=== PATIENT | female | born 1950 | race Caucasian/White ===

== ENCOUNTER 2019-11-09 17:17 | Observation (INO) | payer BC, OTHER ==
[2019-11-09 18:00] LABS: #Eosinphils 0.8 thou/uL (0.0-0.7); #Lymphocytes 1.3 thou/uL (1.20-3.40); #Monocytes 0.4 thou/uL (0.11-0.59); #Neutrophils 4.4 thou/uL (1.40-6.50); %Basophils 0.3 % (0.0-1.0); %Eosinophils 11.3 % (0.0-10.0); %Monocytes 6.1 % (0.0-10.0); %Neutrophils 63.2 % (42.0-75.0); Hemoglobin 12.7 g/dL (12.0-16.0); Mean Corpuscular Hemoglobin 32.7 pg (27.0-31.0); Mean Corpuscular Volume 90.7 fL (78.0-98.0); Platelet Count 195 thou/uL (130-400); RBC Distribution Width 12.7 % (11.5-14.5); White Blood Cell (WBC) Count 6.9 thou/uL (4.8-10.8)
[2019-11-09 18:19] LABS: ALT (SGPT) 22 U/L (8-55); AST (SGOT) 31 U/L (5-34); Albumin 4.1 g/dL (3.4-4.8); Alkaline Phosphatase 64 U/L (40-110); Anion Gap 15 mmol/L (10-20); BUN (Urea Nitrogen) 27 mg/dL (9.8-20.1); Bilirubin, Total 0.4 mg/dL (0.2-1.2); CK (CPK) 55 U/L (29-168); Calc. Creatinine Clearance 0 mL/min (70-130); Carbon Dioxide 20 mmol/L (23-31); Chloride 110 mmol/L (98-107); Estimated GFR-MDRD 29; Globulin 2.9 g/dL (2.4-3.5); Glucose 97 mg/dL (80-115); Lipase 37 U/L (8-78); Potassium 4.5 mmol/L (3.5-5.1); Sodium 140 mmol/L (136-145)
--- NOTE | 2019-11-09 18:35 | RAD ---
EXAM: CHEST ONE VIEW HISTORY: Chest pain dizziness, nausea, shortness of breath. COMPARISON: 06/25/2016 FINDINGS: Cardiac silhouette is magnified by projection but stable in size. The pulmonary vasculature is within normal limits. There is mild atelectasis present at the right lung base. Lungs are otherwise clear. No other interval change when compared to prior study. IMPRESSION: Findings suggestive of mild atelectasis right lung base. There is otherwise no acute cardiopulmonary process
--- NOTE | 2019-11-09 19:21 | PDOC.FPRHP ---
- History of Present Illness Chief Complaint: Chest Pain History of Present Illness: Pt is a 69 yo F with pmh of CAD, HTN, Migraines, Anxiety, and Depression who presents with chest pain. She says 5 minutes till 3 she had sharp stabbing pain , 15/10, that went through from the front to the back and lasted till 1509. She said she was sitting on her couch on her computer. She tried to take an peter seltzer before EMS got there. She said she had similar pain last Monday in the middle of the night while she was lying on her left side, that eventually resolved on its own. EMS got there about 20 minutes after and she said if felt like elastic was around her. EMS gave her 4 ASA and she said the pain resolved 5 minutes later. She was sweating, SOB, tingling in hands and feet, and nausea. She said her shoulders hurt across the top back. She had previously seen Dr. Donald zambrano in 2016. He did a heart cath. ED Course: Labs were obtained in the ED. Trop was 0.015. EKG showed some ST depression in the lateral leads. - Allergies/Adverse Reactions Allergies Allergy/AdvReac Type Severity Reaction Status Date / Time No Known Allergies Allergy Verified 06/25/16 20:29 - Home Medications Medication Instructions Recorded Confirmed Type Aspirin 325 mg PO HS 06/25/16 11/09/19 History Sertraline HCl 200 mg PO HS 06/25/16 11/09/19 History busPIRone HCl [Buspirone HCl] 10 mg PO HS 06/25/16 11/09/19 History Lisinopril 1 tab PO HS 11/09/19 11/09/19 History - History PMHx: CAD, HTN, Migraines, Anxiety, Depression PSHx: Heart Cath (2016), x2 (09/1978, 08/1979), Ex-Lap (02/1979), Partial Hysterectomy (1981), Appendectomy (1981), Cholecystectomy (2015) FHx: Dad- CABG, Sister- HTN Social: No alcohol, tobacco, or illicit drug use. - Review of Systems General: denies: fever/chills Eyes: denies: vision changes Respiratory: reports: shortness of breath. denies: cough Cardiovascular: reports: chest pain Gastrointestinal: reports: nausea, diarrhea. denies: constipation, abdominal pain Genitourinary: denies: dysuria Skin: denies: rashes, lesions Musculoskeletal: reports: pain (upper back) Neurological: reports: other (tingling of hands and feet) Psychological: reports: anxiety, depression - Vital signs BP: 150/85 HR: 65 RR: 17 Tmax: 98.6 Pox: 100% on RA Wt: 90 kg - Physical Exam Constitutional: NAD, awake, alert and oriented HEENT: normocephalic and atraumatic, PERRLA, EOMI, normal nasal mucosa, MMM, oropharynx clear Neck: supple, trachea midline Heart: RRR, normal S1/S2, no murmurs/rubs/gallops, pulses present Lungs: CTAB, no respiratory distress, good air movement, no rales/rhonchi, no wheezing, no retractions Abdomen: soft, non-tender, bowel sounds present Musculoskeletal: normal structure, normal tone Neurological: no focal deficit, CN II-XII intact Skin: no rash/lesions, good turgor Heme/Lymphatic: no unusual bruising or bleeding Psychiatric: normal mood and affect FMR H&P: Results - Labs Result Diagrams: 11/09/19 17:50 11/10/19 03:27 Lab results: WBC 6.9 thou/uL (4.8-10.8) 11/09/19 17:50 Hgb 12.7 g/dL (12.0-16.0) 11/09/19 17:50 Hct 35.4 % (36.0-47.0) L 11/09/19 17:50 MCV 90.7 fL (78.0-98.0) 11/09/19 17:50 Plt Count 195 thou/uL (130-400) 11/09/19 17:50 Neutrophils % 63.2 % (42.0-75.0) 11/09/19 17:50 Sodium 140 mmol/L (136-145) 11/09/19 17:50 Potassium 4.5 mmol/L (3.5-5.1) 11/09/19 17:50 Chloride 110 mmol/L (98-107) H 11/09/19 17:50 Carbon Dioxide 20 mmol/L (23-31) L 11/09/19 17:50 BUN 27 mg/dL (9.8-20.1) H 11/09/19 17:50 Creatinine 1.76 mg/dL (0.6-1.1) H 11/09/19 17:50 Glucose 97 mg/dL (80-115) 11/09/19 17:50 Calcium 9.0 mg/dL (7.8-10.44) 11/09/19 17:50 Total Bilirubin 0.4 mg/dL (0.2-1.2) 11/09/19 17:50 AST 31 U/L (5-34) 11/09/19 17:50 ALT 22 U/L (8-55) 11/09/19 17:50 Alkaline Phosphatase 64 U/L (40-110) 11/09/19 17:50 Creatine Kinase 55 U/L (29-168) 11/09/19 17:50 Serum Total Protein 7.0 g/dL (6.0-8.3) 11/09/19 17:50 Albumin 4.1 g/dL (3.4-4.8) 11/09/19 17:50 Lipase 37 U/L (8-78) 11/09/19 17:50 - EKG Interpretation EKG: Anterolateral ST depression - Radiology Interpretation Chest x-ray Status: image reviewed by me, report reviewed by me (mild atelectasis of right lower lung base) FMR H&P: A/P - Problem List (1) Chest pain Current Visit: No Status: Acute Code(s): R07.9 - CHEST PAIN, UNSPECIFIED (2) Hypertension Current Visit: No Status: Chronic Code(s): I10 - ESSENTIAL (PRIMARY) HYPERTENSION (3) DANA (acute kidney injury) Current Visit: Yes Status: Acute Code(s): N17.9 - ACUTE KIDNEY FAILURE, UNSPECIFIED (4) Anxiety and depression Current Visit: No Status: Chronic Code(s): F41.9 - ANXIETY DISORDER, UNSPECIFIED; F32.9 - MAJOR DEPRESSIVE DISORDER, SINGLE EPISODE, UNSPECIFIED - Plan Pt is a 69 yo F with pmh of CAD, HTN, Migraines, Anxiety, and Depression who presents with chest pain. 1. Unstable Angina Trop: 0.015 * Hx of HTN * Stated pain was at rest, relieved by aspirin, sharp stabbing midsternal pain with radiation to the back * Heart Score: 6, risk factors: HTN, CAD, obesity * Father had a CABG * EKG: anterolateral depression * Admission in 2017 shows 20% stenosis in the LAD * Dr. Arriaga saw her during the admission, but she followed up with Dr. Bennett * Will * trend trops * consult Cardiology in the morning to determine if she needs a stress vs. cath * admit to telemetry * Check lipid Panel, TSH, Mag, Phos * Continue home medication: ASA 2. HTN BP: 150/85 * Continue home medication: Lisinopril 3. CKD vs. DANA Cre: 1.76 * In 2017 previously 1.13-1.3 * Will monitor with CMP 4. Anxiety & Depression Continue home medications: Sertraline & Buspirone Code Status: Full Diet: HHLSo > NPO @ midnight IVF: SL DVT PPx: Lovenox 30, CrCl: 20 GI PPx: Tums prn PCP: CC Dispo: Tele obs, LOS < 48H. Will work up for chest pain. FMR H&P: Upper Level - Plan Date/Time: 11/09/19 836 I, Tony Yates, have evaluated this patient and agree with findings/plan as outlined by administrative intern resident. Pertinent changes/additions are listed here. Addendum - Attending - Attending Attestation Date/Time: 11/09/19 3557 I personally evaluated the patient and discussed the management with Dr. Yates I agree with the History, Examination, Assessment and Plan documented above with any addition or exceptions noted below. 69 yo HTN nonsmoker brought in with chest pain at rest. Patient describes tight crushing severe left sided pain with radiation to back and shoulders associated with dyspnea and diaphoresis. Patient With relief in ambulance with ASA. Patient had similiar episode at rest several days ago. EKG with ST changes ant lateral leads initial troponin negative Lab with CKD creatinine 1.7. Patient no ongoing CP. PMHX HTN Depression Anxiety Migraine DOMINGUEZ Hepatitis C per records Obesity FMHX notable early onset HD father RX buspar zoloft zestril Nonsmoker Surgery C/S x 2 Hysterectomy/appendectomy Cholecystectomy 07/2016 Dr Dubois Heart Cath Normal appr 2006 abn Stress 06/2016 with f/u LHC with EF 55% and 20% left main nonobstructive lesion ? local prox verse distal Left main
[2019-11-09] MEDS ORDERED: Calcium Carbonate 500 MG ChewTAB PO PRN (19:22)
[2019-11-09] MEDS ORDERED: Senokot S 8.6-50 MG TAB PO PRN (19:22)
[2019-11-09] MEDS ORDERED: Ondansetron ODT 4 MG TAB PO PRN (19:22)
[2019-11-09] MEDS ORDERED: Acetaminophen 325 MG TAB PO PRN (19:22)
[2019-11-09] MEDS ORDERED: Nitroglycerin 0.4 MG TAB (25 Tab Bottle) PO PRN (19:24)
[2019-11-09 19:44] LABS: Cardiac Risk 4.3 (Less than 4.5)
[2019-11-09 21:30] LABS: Troponin I 0.148 ng/mL (< 0.028)
[2019-11-09 21:44] VITALS: BMI 45.1
[2019-11-09] MEDS: busPIRone HCl 10 MG TAB PO SCH (21:55)
[2019-11-09] MEDS: Lisinopril 5 MG TAB PO SCH (21:55)
[2019-11-09] MEDS: Aspirin 81 mg Enteric Coated Tablet PO SCH (21:55)
[2019-11-10 00:48] LABS: Troponin I Less than 0.010 ng/mL (< 0.028)
[2019-11-10 04:00] LABS: Phosphorus 3.6 mg/dL (2.3-4.7)
[2019-11-10 04:03] LABS: Anion Gap 11 mmol/L (10-20); BUN (Urea Nitrogen) 25 mg/dL (9.8-20.1); Calc. Creatinine Clearance 76 mL/min (70-130); Calcium 8.9 mg/dL (7.8-10.44); Carbon Dioxide 22 mmol/L (23-31); Chloride 109 mmol/L (98-107); Estimated GFR-MDRD 40; Glucose 95 mg/dL (80-115); Magnesium 2.1 mg/dL (1.6-2.6); Potassium 4.1 mmol/L (3.5-5.1); Sodium 138 mmol/L (136-145)
--- NOTE | 2019-11-10 05:40 | PDOC.FM ---
- Subjective Subjective: Patient doing well. Denies acute concerns. Denies CP, SOB, NVD since admission. - Objective MAR Reviewed: Yes Vital Signs & Weight: Vital Signs (12 hours) Temp Pulse Resp BP Pulse Ox 11/10/19 04:00 98.3 F 60 16 98/54 L 97 11/10/19 00:22 100 11/09/19 21:55 64 11/09/19 20:15 98.1 F 64 18 158/74 H 100 Weight Weight 119.386 kg Result Diagrams: 11/09/19 17:50 11/10/19 16:42 Dx/Plan - Plan Plan: Pt is a 69 yo F with pmh of CAD, HTN, Migraines, Anxiety, and Depression who presented with chest pain. 1. Unstable Angina * Hx of HTN * Admission in 2016 shows 20% stenosis in the LAD * Dr. Arriaga saw her during the admission, but she followed up with Dr. Bennett * Will * consult Cardiology * Continue home medication: ASA * Start Atorvastatin 20 based on ASCVD of 11% 2. HTN * Continue home medication: Lisinopril 3. CKD vs. DANA Returned to baseline per chart review (1.3) 4. Anxiety & Depression Continue home medications: Sertraline & Buspirone Code Status: Full Diet: NPO for possible cath IVF: SL DVT PPx: Lovenox 30, CrCl: 20 GI PPx: Tums prn PCP: CC Dispo: Tele obs, LOS < 48H. Will work up for chest pain. Addendum - Attending - Attending Attestation Date/Time: 11/10/19 7314 I personally evaluated the patient and discussed the management with Dr. Stewart I agree with the History, Examination, Assessment and Plan documented above with any addition or exceptions noted below.
[2019-11-10] MEDS: Enoxaparin Sodium 30 MG/0.3 ML SYRINGE SC SCH (08:25)
[2019-11-10] MEDS ORDERED: Aspirin 325 mg Enteric Coated Tablet PO SCH (09:00)
[2019-11-10] MEDS ORDERED: Iopamidol-370 76% 500 ML 1 ML ONE (09:35)
--- NOTE | 2019-11-10 12:56 | CON ---
DATE OF CONSULTATION: HISTORY OF PRESENT ILLNESS: The patient is a 69-year-old woman, who presents with recurrent chest discomfort. The patient was seen in 2017 with chest pain. She underwent a cardiac evaluation including a stress test, which revealed her to have no evidence of ischemia. There was marked ECG changes, so the patient subsequently underwent a cardiac catheterization. She was found to have mild coronary artery disease. There was a 20% lesion in the proximal LAD, the left circumflex , and right coronary free of significant disease. The patient was found to have gallstones and subsequently underwent a cholecystectomy. The patient has been free of chest discomfort until 10 days ago. The patient reports having severe midsternal chest discomfort that radiated to her back. The discomfort was associated with dyspnea. It lasted for approximately 10 minutes. The patient had another episode the day prior to admission, where she felt the same midsternal chest discomfort. This time it lasted approximately 15 minutes. It again radiated into her back. The patient came for further evaluation. The patient denies having any present chest discomfort. PAST MEDICAL HISTORY: 1. Coronary artery disease. 2. Hypertension. 3. Dyslipidemia. 4. Depression. 5. Hepatitis C. PAST SURGICAL HISTORY: Cholecystectomy, , and hysterectomy. SOCIAL HISTORY: Nonsmoker. FAMILY HISTORY: Strong family history of coronary artery disease. ALLERGIES: SHE HAS NO KNOWN DRUG ALLERGIES. MEDICATIONS: 1. Aspirin 325 daily. 2. Sertraline 200 daily. 3. BuSpar 10 daily. 4. Lisinopril 5 mg daily. FAMILY HISTORY: Positive family history of heart disease. Father had coronary artery bypass graft surgery. REVIEW OF SYSTEMS: Ten-point system otherwise unremarkable. PHYSICAL EXAMINATION: GENERAL: Obese woman, in no acute distress. VITAL SIGNS: Blood pressure 107/61. NECK: No jugular venous distention. LUNGS: Clear to auscultation. HEART: Regular rate and rhythm. Normal S1 and S2. ABDOMEN: Distended. EXTREMITIES: Showed no edema. VASCULAR: Radial pulses are 2+. LABORATORY DATA: Sodium 138, potassium 4.1, chloride 109, bicarbonate 22, BUN 25, and creatinine 1.3. Troponin less than 0.01. Her white blood cell count is 6.9 , hemoglobin 12.7, hematocrit 35.4, and platelets are 195. EKG normal sinus rhythm with an ST-T wave abnormality suggestive of ischemia. IMPRESSION: 1. Chest pain, possibly due to ischemic heart disease. 2. History of mild coronary artery disease. 3. Hypertension. 4. Dyslipidemia. 5. Morbid obesity. 6. Depression. This patient presents with chest discomfort. I will obtain a D-dimer to make sure, she is not in a risk of having had a pulmonary embolus. We will also recommend repeat stress testing to see if there is any evidence of significant ischemia. We will follow this patient with you through her hospitalization. Job ID: [id number] MTDSebastian
--- NOTE | 2019-11-10 16:20 | CT ---
CT PULMONARY ANGIOGRAM WITH IV CONTRAST AND 3D MIP RECONSTRUCTIONS: Date: 11-10-2019 Provided Clinical History: Elevated d-dimer and chest pain. FINDINGS: No comparison. Vascular calcification including coronary calcium is demonstrated. There is no evidence for central o r segmental pulmonary embolus. The lungs are free of significant opacity. The airways are patent in a ppearance and is of normal caliber. There is no evidence for thoracic lymph node enlargement. The vis ualized portions of the upper abdomen appear unremarkable. The osseous structures demonstrate no conc erning osteoblastic or osteolytic lesions. IMPRESSION: 1. No evidence for central or segmental pulmonary embolus. 2. Vascular calcification including coronary calcium. POS: TATE
[2019-11-10 17:12] LABS: Anion Gap 11 mmol/L (10-20); BUN (Urea Nitrogen) 21 mg/dL (9.8-20.1); Calc. Creatinine Clearance 81 mL/min (70-130); Calcium 9.1 mg/dL (7.8-10.44); Carbon Dioxide 23 mmol/L (23-31); Chloride 108 mmol/L (98-107); Estimated GFR-MDRD 43; Glucose 114 mg/dL (80-115); Sodium 138 mmol/L (136-145)
--- NOTE | 2019-11-10 21:08 | PDOC.BPN ---
- Brief Progress Note Pt developed 10/10 chest pain while at rest around 2024. Episode lasted approximately 14 minutes and symptoms were improved with one dose PRN nitro. Describes sharp pain that radiates to the back and bilateral shoulders. Stat EKG performed, appears to be unchanged from EKG on admission. Stable vitals, blood pressure 131/90 during episode. Assessed pt at bedside, was no longer having chest pain.
[2019-11-10 21:56] LABS: Troponin I 0.016 ng/mL (< 0.028)
[2019-11-10] MEDS: Aspirin 81 mg Enteric Coated Tablet PO SCH (22:12)
[2019-11-10] MEDS: busPIRone HCl 10 MG TAB PO SCH (22:13)
[2019-11-10] MEDS: Atorvastatin Calcium 40 MG TAB PO SCH (22:13)
[2019-11-10] MEDS: Lisinopril 5 MG TAB PO SCH (22:13)
[2019-11-11 05:01] LABS: Anion Gap 13 mmol/L (10-20); BUN (Urea Nitrogen) 22 mg/dL (9.8-20.1); Calc. Creatinine Clearance 80 mL/min (70-130); Calcium 9.3 mg/dL (7.8-10.44); Carbon Dioxide 20 mmol/L (23-31); Chloride 109 mmol/L (98-107); Estimated GFR-MDRD 42; Glucose 95 mg/dL (80-115); Sodium 138 mmol/L (136-145)
--- NOTE | 2019-11-11 07:30 | PDOC.FM ---
- Subjective Subjective: Pt has no complaints on the visit this morning. She states that last night she had an episode of 10/10 CP that resolved with nitro. She is slightly anxious as she is waiting for her stress test this morning. - Objective Vital Signs & Weight: Vital Signs (12 hours) Temp Pulse Resp BP BP Pulse Ox 11/11/19 05:37 97.7 F 65 12 93/54 L 98 11/10/19 22:13 67 108/75 11/10/19 19:32 98.6 F 64 18 119/69 96 Weight Weight 119.386 kg I&O: 11/10/19 11/11/19 11/12/19 06:59 06:59 06:59 Intake Total 240 830 Output Total 950 Balance -710 830 Result Diagrams: 11/09/19 17:50 11/11/19 04:07 Phys Exam - Physical Examination Constitutional: NAD HEENT: moist MMs Neck: supple, full ROM Respiratory: no wheezing, no rales, clear to auscultation bilateral Cardiovascular: RRR, no significant murmur Gastrointestinal: soft, non-tender Musculoskeletal: no edema, pulses present Neurological: non-focal, moves all 4 limbs Psychiatric: normal affect Skin: no rash, cap refill <2 seconds Dx/Plan - Plan Plan: 1. Atypical CP -Hx of HTN, heart cath 2016 shows 20% stenosis in the LAD -cardiology consulted- Dr Sanders started atorvastatin 40mg -Continue home medication: ASA -ASCVD of 11% -stress test today -nitroglycerin prn 2. HTN -Continue home medication: Lisinopril 3. CKD 3b -monitor for medications that can be nephrotoxic, is on lovenox 30mg 4. Anxiety & Depression -Continue home medications: Sertraline & Buspirone 5. CAD -atorvastatin Code Status: Full Diet: NPO for IVF: SL DVT PPx: Lovenox 30, CrCl: 20 GI PPx: Tums prn PCP: CC Dispo: Tele obs, LOS < 48H. Will work up for chest pain. Addendum - Attending - Attending Attestation Date/Time: 11/11/19 1212 I personally evaluated the patient and discussed the management with Dr. Evans. I agree with the History, Examination, Assessment and Plan documented above with any addition or exceptions noted below. Patient here for ACS r/o. She has known mild CAD. Getting stress test now. Cardiology on board. Awaiting result and further recs from them. Possible discharge if stress negative.
[2019-11-11] MEDS ORDERED: Regadenoson 0.4 MG/5 ML SYRINGE ONE (10:06)
[2019-11-11] MEDS: Enoxaparin Sodium 30 MG/0.3 ML SYRINGE SC SCH (12:55)
--- NOTE | 2019-11-11 13:37 | PRG ---
DATE OF SERVICE: 11/11/2019 SUBJECTIVE: Ms. Das had an episode of chest pressure again at rest yesterday. scheduled for tomorrow morning. OBJECTIVE: VITAL SIGNS: Blood pressure 119/70, pulse is 70. LUNGS: Clear. CARDIAC: Normal S1. Normal S2. ABDOMEN: Soft and nontender. EXTREMITIES: She has good femoral pulse on the right. On the monitor, she does have what looks like ST depression at rest. We will ask for a stat EKG. ASSESSMENT: 1. Chest pressure, suspicious for angina. 2. Cardiac catheterization done in June 2016, only minimal coronary atherosclerosis, 20% ostial left anterior descending. PLAN: 1. I will review the stress test. 2. May need cardiac catheterization in view of the ongoing chest pressure. Job ID: [id number]
--- NOTE | 2019-11-11 17:48 | EKG ---
Test Reason : STAT Blood Pressure : / mmHG Vent. Rate : 085 BPM Atrial Rate : 085 BPM P-R Int : 122 ms QRS Dur : 092 ms QT Int : 360 ms P-R-T Axes : 042 057 238 degrees QTc Int : 428 ms Normal sinus rhythm Abnormal ECG When compared with ECG of 25-JUN-2016 17:14, No significant change was found Confirmed by JAY GODDARD, DR. Marshall ([id number]) on 11/11/2019 5:48:18 PM Referred By: MAGDIEL Confirmed By:DR. Joanna THOMPSON MD
--- NOTE | 2019-11-11 17:54 | EKG ---
Test Reason : Blood Pressure : / mmHG Vent. Rate : 064 BPM Atrial Rate : 064 BPM P-R Int : 112 ms QRS Dur : 090 ms QT Int : 386 ms P-R-T Axes : 057 068 -39 degrees QTc Int : 398 ms Normal sinus rhythm Abnormal ECG When compared with ECG of 10-NOV-2019 20:41, (Unconfirmed) No significant change was found Confirmed by JAY GODDARD, . S. ([id number]) on 11/11/2019 5:54:23 PM Referred By: VINCENT Confirmed By:DR. Joanna THOMPSON MD
[2019-11-11] MEDS ORDERED: Communication Order-Pharmacy FS SCH (18:30)
--- NOTE | 2019-11-11 18:34 | PRG ---
DATE OF SERVICE: 11/11/2019 Ms. Das is doing okay. No further chest pain today. EKG does look very abnormal though, suggest anterior ischemia. The patient has had three episodes of chest pressure at rest very suspicious for unstable angina. I have recommended proceeding to cardiac catheterization. We discussed risk of stroke, heart attack, iodine allergy, loss of blood supply to leg or kidney, stent thrombosis, stent restenosis. She understands and wishes to proceed. She understands if there is an indeterminate angiogram, further imaging could be done, intravascular ultrasound or flow wire could be considered. Job ID: [id number]
[2019-11-11] MEDS: Atorvastatin Calcium 40 MG TAB PO SCH (21:07)
[2019-11-11] MEDS: Aspirin 81 mg Enteric Coated Tablet PO SCH (21:07)
[2019-11-11] MEDS: Lisinopril 5 MG TAB PO SCH (21:07)
[2019-11-11] MEDS: busPIRone HCl 10 MG TAB PO SCH (21:07)
[2019-11-11] MEDS: Sodium Chloride 0.9% 1,000 ML IV SCH (21:12)
[2019-11-12 04:43] LABS: Anion Gap 15 mmol/L (10-20); BUN (Urea Nitrogen) 18 mg/dL (9.8-20.1); Calc. Creatinine Clearance 85 mL/min (70-130); Carbon Dioxide 19 mmol/L (23-31); Chloride 108 mmol/L (98-107); Estimated GFR-MDRD 45; Glucose 90 mg/dL (80-115); Sodium 138 mmol/L (136-145)
--- NOTE | 2019-11-12 06:01 | PDOC.FM ---
- Subjective Subjective: Pt has no complaints overnight. - Objective Vital Signs & Weight: Vital Signs (12 hours) Temp Pulse Resp BP Pulse Ox 11/12/19 04:00 98.1 F 67 18 108/63 98 11/11/19 19:45 97.6 F 67 18 130/65 99 Weight Weight 119.386 kg I&O: 11/10/19 11/11/19 11/12/19 06:59 06:59 06:59 Intake Total 240 830 960 Output Total 950 Balance -710 830 960 Result Diagrams: 11/09/19 17:50 11/12/19 03:50 Phys Exam - Physical Examination Constitutional: NAD HEENT: moist MMs, sclera anicteric Neck: no JVD, supple Respiratory: no wheezing, clear to auscultation bilateral Cardiovascular: RRR, no significant murmur Gastrointestinal: soft, non-tender, positive bowel sounds Musculoskeletal: no edema Neurological: non-focal, normal sensation Psychiatric: normal affect Skin: no rash, normal turgor Dx/Plan - Plan Plan: Plan: 1. Atypical CP -Hx of HTN, heart cath 2017 shows 20% stenosis in the LAD -cardiology consulted- Dr Sanders started atorvastatin 40mg -Continue home medication: ASA -ASCVD of 11% -stress test yesterday -Dr Arriaga noted some abnormalities on the stress test yesterday and is taking her to the [employer] today for concerns of anterior ischemia -lovenox held -nitroglycerin prn 2. HTN -Continue home medication: Lisinopril 3. CKD 3b -monitor for medications that can be nephrotoxic, is on lovenox 30mg 4. Anxiety & Depression -Continue home medications: Sertraline & Buspirone 5. CAD -atorvastatin Code Status: Full Diet: NPO for IVF: SL DVT PPx: Lovenox 30, CrCl: 20 GI PPx: Tums prn PCP: CC Dispo: Tele obs, LOS < 48H. 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 Addendum - Attending - Attending Attestation Date/Time: 11/12/19 8050 I personally evaluated the patient and discussed the management with Dr. Evans. I agree with the History, Examination, Assessment and Plan documented above with any addition or exceptions noted below. Patient stable this morning, s/p LHC. Apparently no worsening CAD than previously. Awaiting further cardiology recs but possible dc later today after post cath care complete.
[2019-11-12] MEDS ORDERED: Fentanyl 100 MCG/2 ML VIAL ONE (08:35)
[2019-11-12] MEDS ORDERED: Nitroglycerin 100MG/250ML BOT 250 ML ONE (08:43)
[2019-11-12] MEDS ORDERED: Nitroglycerin 0.4 MG TAB (25 Tab Bottle) SL PRN (09:09)
[2019-11-12] MEDS ORDERED: Sodium Chloride 0.9% 200 ML IV PRN (09:09)
--- NOTE | 2019-11-12 09:41 | NM ---
Radionucleotide stress only myocardial perfusion scan with CT attenuation correction and SPECT imagin g Left ventricular wall motion evaluation and ejection fraction HISTORY: Chest pain. FINDINGS: Lexiscan protocol. There is heterogeneous uptake of radiotracer throughout the left ventric ular myocardium on the stress images. Moderate sized area of more prominent radiotracer defect at the mid to distal portion of the anterior wall. Rest images not performed. QGS analysis of gated SPECT images shows some scattered areas of dyskinetic motion. Ejection fraction calculated at 76%. IMPRESSION : Stress only exam. Diminished uptake at the anterior wall could represent ischemia versus infarct vers us breast attenuation. Preserved LVEF.
[2019-11-12] MEDS: Sodium Chloride 0.9% 1,000 ML IV SCH (10:02)
[2019-11-12] MEDS ORDERED: Iopamidol 370 76% 100 ML VIAL ONE (10:04)
[2019-11-12 16:02] VITALS: BP 127/76; TEMP 97.7
--- NOTE | 2019-11-12 19:58 | DIS ---
DATE OF ADMISSION: 11/09/2019 DATE OF DISCHARGE: 11/12/2019 RESIDENT: Misty Evans MD. ADMITTING ATTENDING: Duy Arias MD. DISCHARGE ATTENDING: Mian Huang MD. CONSULTS: Cardiology, Dr. Arriaga. PROCEDURES: Cardiac stress test and cardiac catheterization. PRIMARY DIAGNOSIS: Atypical chest pain. SECONDARY DIAGNOSES: Hypertension, chronic kidney disease 3b, anxiety and depression, coronary artery disease. DISCHARGE MEDICATIONS: Nitroglycerin 0.4 mg sublingual p.r.n. for chest pain, aspirin 81 mg p.o. daily, atorvastatin 40 mg p.o. at bedtime, and pantoprazole 40 mg p.o. daily. Discontinued medications: Aspirin 325 mg. HOSPITAL COURSE: The patient is a 69-year-old female with past medical history of CAD, hypertension, depression and anxiety, who presented with chest pain, described as a sharp stabbing pain from the front to the back. She had this pain at rest. She had a similar pain a week prior, which eventually resolved on its own. She was brought to hospital by EMS, was given aspirin and it resolved the pain. Had associated symptoms of sweating, shortness of breath and nausea. She had a history of a heart catheterization in 2017 which showed 20% blockage of the LAD. She was admitted to the telemetry unit. Her troponins were trended: 0.015, 0.148, 0.01. Cardiology was consulted. A D-dimer level was drawn, it was found to be elevated at 0.78 and subsequently, a CTA was ordered which showed no evidence of PE. The patient had chest pain while in the hospital rated as a 10/10 that was relieved with nitro. A stress test was ordered and done. It was read by cardiology as abnormal and was recommended she undergo a cardiac catheterization. It showed 20% blockage in the LAD, unchanged from her last cath done in 2017. Cardiology then cleared her for discharge and she will be discharged home on atorvastatin, aspirin 81 mg, and Protonix and nitroglycerin as needed for pain and also continue her other home medications except for the aspirin 325 which will be discontinued. DISPOSITION: Stable. DISCHARGE INSTRUCTIONS: Location: Home. Diet: Heart healthy. Activity: Ad royer. Followup: Follow up in 3 to 5 days with her PCP. Job ID: [id number] [facility]
[2019-11-12] MEDS ORDERED: Lisinopril 20 MG TAB PO SCH (21:00)
--- NOTE | 2019-11-19 16:20 | EKG ---
Test Reason : Blood Pressure : / mmHG Vent. Rate : 069 BPM Atrial Rate : 069 BPM P-R Int : 114 ms QRS Dur : 102 ms QT Int : 410 ms P-R-T Axes : -06 053 -66 degrees QTc Int : 439 ms Normal sinus rhythm Abnormal ECG Confirmed by CATHY GODDARD, ADONIS Deutsch ([id number]), publications editor NIKITA MOSS ([id number]) on 11/19/2019 4:19:17 PM Referred By: Confirmed By:ADONIS MORGAN MD
--- NOTE | 2019-11-20 12:10 | STRESS ---
Acquisition Time: 2019-11-11 11:16:00 Total Exercise Time: 00:01:00 Test Indications: CHEST PAIN Medications: Protocol: LEXISCAN Max HR: 101 BPM 66% of Pred: 152 BPM Max BP: 114/070 mmHG Max Work Load: 1.0 METS RESTING ECG: NORMAL SINUS RHYTHM AT 67 BPM WITH EARLY R-WAVE TRANSITION; NON-SPECIFIC ST SEGMENT AND T-WAVE CHANGES SYMPTOMS: NONE NORMAL BP RESPONSE ECTOPY: NONE ECG STRESS: ST SEGMENT AND T-WAVE CHANGES MORE PRONOUNCED WITH LEXISCAN INFUSION INTERPRETATION: INDETERMINATE ECG/AWAIT NUCLEAR IMAGES FOR DEFINITIVE DIAGNOSIS Confirmed by NIEVES ISRAEL ELLEN ([id number]) on 11/20/2019 12:10:45 PM Referred By: MD Edwina TIAN Confirmed By:BONITA ISRAEL PA-C
== END 2019-11-12 16:37 | disposition home or self-care (01) ==
LOC: ERS 17:17 → 2NO 19:12
PROVIDERS: ADMIT Family Medicine; ATTEND Family Medicine
PROC: 4A023N7 Measurement of Cardiac Sampling and Pressure, Left Heart, Percutaneous Approach (ICD-10-PCS; principal; 2019-11-12)
PROC: B2011ZZ Plain Radiography of Multiple Coronary Arteries using Low Osmolar Contrast (ICD-10-PCS; 2019-11-12)
DX: R07.89 Other chest pain (principal); I25.110 Atherosclerotic heart disease of native coronary artery with unstable angina pectoris; I12.9 Hypertensive chronic kidney disease with stage 1 through stage 4 chronic kidney disease, or unspecified chronic kidney disease; N18.3 Chronic kidney disease, stage 3 (moderate); F41.9 Anxiety disorder, unspecified; F32.9 Major depressive disorder, single episode, unspecified; E78.5 Hyperlipidemia, unspecified; E66.01 Morbid (severe) obesity due to excess calories; Z68.41 Body mass index [BMI] 40.0-44.9, adult; Z79.82 Long term (current) use of aspirin; Z79.899 Other long term (current) drug therapy; Z95.5 Presence of coronary angioplasty implant and graft
CPT/HCPCS: 36415; 71045; 71275; 76942; 78452; 80048; 80053; 80061; 82550; 83690; 83735; 84100; 84443; 84484; 85025; 85379; 93005; 93010; 93017; 93458; 94760; 96372; A9500; G0378; J1644; J1650; J2785; J3010; Q9967

== ENCOUNTER 2020-03-20 19:45 | Emergency (ER) | payer BC ==
--- NOTE | 2020-03-20 20:16 | CT ---
EXAM: CT brain without contrast HISTORY: Fall with head trauma COMPARISON: None TECHNIQUE: Multiple contiguous axial images were obtained and a CT of the brain without contrast. FINDINGS: The brain is normal in morphology and attenuation without focal lesions or confluent areas of infarction. There is no evidence of hydrocephalus, intracranial hemorrhage, or extra-axial fluid collection. There is left forehead soft tissue swelling. The underlying calvarium is unremarkable. The visualized paranasal sinuses and mastoid air cells are well aerated. IMPRESSION: No evidence of acute intracranial abnormality
--- NOTE | 2020-03-28 15:55 | EKG ---
Test Reason : Blood Pressure : / mmHG Vent. Rate : 062 BPM Atrial Rate : 062 BPM P-R Int : 124 ms QRS Dur : 098 ms QT Int : 426 ms P-R-T Axes : 055 054 018 degrees QTc Int : 432 ms Normal sinus rhythm Incomplete right bundle branch block Abnormal ECG Confirmed by LAWSON L[address] ([id number]), city editor [place] ([id number]) on 03/28/2020 3:55:12 PM Referred By: Confirmed By:LAWSON LANE
== END 2020-03-20 20:55 | disposition home or self-care (01) ==
LOC: ERS 19:45
DX: S06.0X0A Concussion without loss of consciousness, initial encounter (principal); S05.12XA Contusion of eyeball and orbital tissues, left eye, initial encounter; E78.5 Hyperlipidemia, unspecified; N18.4 Chronic kidney disease, stage 4 (severe); F32.9 Major depressive disorder, single episode, unspecified; F41.9 Anxiety disorder, unspecified; Z79.82 Long term (current) use of aspirin; W01.0XXA Fall on same level from slipping, tripping and stumbling without subsequent striking against object, initial encounter
CPT/HCPCS: 70450; 93005